=== PATIENT | female | born 1995 | race Two or more races ===

== ENCOUNTER 2023-08-27 18:32 | Inpatient (IN) | payer MEDICAID, OTHER ==
[~2023-08-27] VITALS: Ht 154.9 cm; Wt 78.8 kg
[2023-08-27] MEDS ORDERED: FERR325T23 PO (19:19)
[2023-08-27] MEDS ORDERED: CHOL200059 PO (19:19)
[2023-08-27] MEDS ORDERED: LAMO25TA36 PO (19:19)
[2023-08-27] MEDS ORDERED: QUET50TA24 PO (19:19)
[2023-08-27] MEDS ORDERED: SERT-162 PO (19:20)
[2023-08-27] MEDS ORDERED: PROP10TA72 PO (19:20)
[2023-08-27] MEDS ORDERED: CHOL500043 PO (19:21)
[2023-08-27 21:08] LABS: BASOPHILS % (AUTO) 0.6 % (0.0-2.0); HEMATOCRIT 42.7 % (36-46); HEMOGLOBIN 13.7 g/dL (12.0-16.0); LYMPHOCYTES # (AUTO) 2.1 K/uL (1.0-4.8); LYMPHOCYTES % (AUTO) 22.7 % (22.0-44.0); MEAN CORPUSCULAR HEMOGLOBIN 26.1 pg (26.0-34.0); MEAN CORPUSCULAR HGB CONC 32.1 G/dL (31.0-37.0); MEAN CORPUSCULAR VOLUME 81 fL (80-100); MONOCYTES # (AUTO) 0.6 K/uL (0.1-1.0); MONOCYTES % (AUTO) 6.1 % (2.0-9.0); NEUTROPHILS # (AUTO) 6.2 K/uL (1.8-7.7); NEUTROPHILS % (AUTO) 66.6 % (40.0-70.0); PLATELET COUNT (AUTO) 379 K/uL (150-450); RED BLOOD CELL COUNT(AUTO) 5.25 MIL/uL (4.00-5.20); RED CELL DISTRIBUTION WIDTH 20.9 % (11.5-14.5); WHITE BLOOD COUNT (AUTO) 9.3 K/uL (4.5-11.0)
[2023-08-27 21:27] LABS: COVID AG,FIA SOURCE NASAL SWAB
[2023-08-27 21:37] LABS: ALCOHOL, BLOOD (SERUM) < 3 mg/dL (0-10)
[2023-08-27 21:43] LABS: ANION GAP 12 mmol/L (8-16); CALCIUM, TOTAL 9.6 mg/dL (8.8-10.5); CARBON DIOXIDE 26 mmol/L (22-29); CHLORIDE 100 mmol/L (98-107); CREATININE 0.64 mg/dL (0.60-1.30); GLOMERULAR FILTR. RATE CALC > 60 mL/min (>60); GLUCOSE,RANDOM 105 mg/dL (70-110); POTASSIUM 4.4 mmol/L (3.5-5.1); SODIUM SERUM 138 mmol/L (136-145); UREA NITROGEN, BLOOD 16 mg/dL (7-18)
[2023-08-27 21:48] LABS: ALANINE AMINOTRANSFERASE 24 U/L (12-78); ALKALINE PHOSPHATASE 115 U/L (46-116); ASPARTATE AMINOTRANSFERASE 16 U/L (15-37); BILIRUBIN,TOTAL 0.2 mg/dL (0.1-1.0); TOTAL PROTEIN, SERUM 8.2 g/dL (6.4-8.2)
[2023-08-27 22:39] LABS: SARS-COV2 (COVID) ANTIGEN,FIA Negative (Negative)
[2023-08-28] MEDS ORDERED: LORazepam 2 MG TABLET PO PRN (01:15)
[2023-08-28] MEDS ORDERED: HALOPERIDOL 5 MG TABLET PO PRN (01:15)
[2023-08-28] MEDS ORDERED: ZOLPIDEM TARTRATE 10 MG TABLET PO PRN (01:15)
[2023-08-28 04:11] VITALS: BP 107/65; PULSE 75; RESP 18; TEMP 97.2
[2023-08-28] MEDS ORDERED: INFLUENZA VIRUS VACCINE QVS 2023-24 (6MO+)/PF 60 MCG/0.5 ML SYRINGE IM. ONE (04:30)
[2023-08-28 08:52] LABS: CHOL/HDL RATIO 2.9 (3.9-5.7); FREE T4 (FREE THYROXINE) 0.91 ng/dL (0.76-1.46); THYROID STIMULATING HORMONE 2.72 uIU/mL (0.36-3.74)
[2023-08-28 09:05] VITALS: BP 110/71; PULSE 70; RESP 18; TEMP 97.8
[2023-08-28] MEDS ORDERED: PROPRANOLOL HCL 10 MG TABLET PO PRN (09:30)
[2023-08-28] MEDS: SERTRALINE HCL 100 MG TABLET PO SCH (10:23)
[2023-08-28] MEDS: LamoTRIgine 25 MG TABLET PO SCH (10:25)
[2023-08-28] MEDS ORDERED: PETROLATUM,WHITE 28 GM JELLY TP PRN (12:00)
[2023-08-28] MEDS ORDERED: IBUPROFEN 400 MG TABLET PO PRN (12:00)
[2023-08-28] MEDS ORDERED: ONDANSETRON HCL 4 MG TABLET PO PRN (12:00)
[2023-08-28] MEDS ORDERED: MAGNESIUM HYDROXIDE SUSPENSION 30 ML UDCUP PO PRN (12:00)
[2023-08-28] MEDS ORDERED: LOPERAMIDE HCL 2 MG CAPSULE PO PRN (12:00)
[2023-08-28] MEDS ORDERED: ACETAMINOPHEN 325 MG TABLET PO PRN (12:00)
[2023-08-28] MEDS ORDERED: CloNIDine HCL 0.1 MG TABLET PO PRN (12:00)
[2023-08-28] MEDS ORDERED: MAG HYDROX/ALUMINUM HYD/SIMETH ES 30 ML SUSPENSION UDCUP PO PRN (12:00)
[2023-08-28] MEDS ORDERED: ALBUTEROL SULFATE HFA 90 MCG/PUFF 8 GM INHALER IH PRN (12:00)
[2023-08-28] MEDS ORDERED: DOCUSATE SODIUM 100 MG CAPSULE PO PRN (12:00)
[2023-08-28] MEDS ORDERED: GuaiFENesin/D-METHORPHAN [SUGAR-FREE] 200-20MG/10 ML SYRUP UDCUP PO PRN (12:00)
[2023-08-28] MEDS: NICOTINE 14 MG/24 HOUR PATCH TD PRN (13:34)
[2023-08-28 23:46] VITALS: BP 96/57; PULSE 75; RESP 16; TEMP 97.1; O2SAT 98
[2023-08-29 08:28] VITALS: BP 118/69; PULSE 80; RESP 18; TEMP 98; O2SAT 99
[2023-08-29 08:32] LABS: THYROID STIMULATING HORMONE 1.53 uIU/mL (0.36-3.74)
[2023-08-29 08:34] LABS: HEMOGLOBIN A1C 5.3 % (3.8-5.6)
[2023-08-29] MEDS ORDERED: CETI10TA58 PO (15:48)
[2023-08-29] MEDS: LamoTRIgine 25 MG TABLET PO SCH (16:35)
[2023-08-29 20:37] VITALS: BP 102/66; PULSE 100; RESP 19; TEMP 97.6; O2SAT 99
[2023-08-29] MEDS: QUEtiapine FUMARATE 25 MG TABLET PO SCH (21:23)
[2023-08-30 08:15] VITALS: BP 118/79; PULSE 88; RESP 16; TEMP 98; O2SAT 98
[2023-08-30] MEDS ORDERED: LAMO25TA36 PO (11:43)
== END 2023-08-30 17:05 | disposition home or self-care (01) | DRG 754 ==
LOC: EMS 18:34 → B3A 08-28 02:27
PROVIDERS: ADMIT Psychiatry & Neurology Psychiatry; ATTEND Psychiatry & Neurology Psychiatry
DX: F32.9 Major depressive disorder, single episode, unspecified (principal); R45.851 Suicidal ideations; E55.9 Vitamin D deficiency, unspecified; E66.3 Overweight; Z20.822 Contact with and (suspected) exposure to COVID-19; Z87.891 Personal history of nicotine dependence; Z68.32 Body mass index [BMI] 32.0-32.9, adult
CPT/HCPCS: 80053; 80061; 83036; 84439; 84443; 84703; 85025; G0480